=== PATIENT | male | born 1970 | race African-American/Black ===

== ENCOUNTER 2021-05-09 18:25 | Emergency (ER) | payer OTHER ==
[~2021-05-09] VITALS: Ht 182.9 cm; Wt 103.0 kg
[2021-05-09] MEDS ORDERED: IV NORMAL SALINE 1000ML BAG 1,000 ML IV SCH (20:15)
[2021-05-09 20:31] LABS: BASO # 0.1 x10^3/uL (0.0-0.2); BASO % 1 % (0-3); EOS # 0.2 x10^3/uL (0.0-0.7); EOS % 2 % (0-3); HEMATOCRIT 44.1 % (39.0-53.0); HEMOGLOBIN 14.2 g/dL (13.0-17.5); LYMPH # 3.6 x10^3/uL (1.0-4.8); LYMPH % 50 % (24-48); MEAN CORPUSCULAR HEMOGLOBIN 24 pg (25-35); MEAN CORPUSCULAR HGB CONC 32 g/dL (31-37); MEAN CORPUSCULAR VOLUME 75 fL (79-100); MONO # 0.5 x10^3/uL (0.0-1.1); MONO % 7 % (0-9); NEUT # 2.9 x10^3/uL (1.8-7.7); NEUT % 40 % (31-73); PLATELET COUNT 331 x10^3/uL (140-400); RED BLOOD COUNT 5.93 x10^6/uL (4.30-5.70); RED CELL DISTRIBUTION WIDTH 16.6 % (11.5-14.5); WHITE BLOOD COUNT 7.2 x10^3/uL (4.0-11.0)
--- NOTE | 2021-05-09 20:37 | RAD ---
Study: XR CHEST 1V Indication: Abnormal EKG. Comparison: None. Findings: Upper limits of normal size of the cardiomediastinal silhouette considering AP technique. Unremarkabl e/symmetric miguel. No confluent airspace infiltrate, pleural effusion or pneumothorax. Suspected mild basilar volume loss. Impression: Upper limits of normal size of the cardiomediastinal silhouette. No background manifestations of over t congestive heart failure/volume overload. Electronically signed by: VAUGHN MARIE MD (05/09/2021 8:35 PM) [facility] [facility]
[2021-05-09 21:02] LABS: BILIRUBIN,URINE NEGATIVE (NEG); CLARITY,URINE CLEAR; COLOR,URINE YELLOW; NITRITE,URINE NEGATIVE (NEG); PROTEIN,URINE NEGATIVE (NEG-TRACE)
[2021-05-09 21:12] LABS: CALCIUM 8.5 mg/dL (8.5-10.1); CREATININE 1.3 mg/dL (0.7-1.3); GFR 70.1; POTASSIUM 3.8 mmol/L (3.5-5.1)
[2021-05-09 21:12] LABS: BACTERIA,URINE 0 /HPF (0-FEW)
[2021-05-09 21:18] LABS: BARBITURATES NEG (NEG); BENZODIAZEPINES NEG (NEG); CANNABINOIDS NEG (NEG); COCAINE NEG (NEG); METHADONE NEG (NEG); OPIATES NEG (NEG); PHENCYCLIDINE NEG (NEG)
[2021-05-09 21:24] LABS: ALBUMIN 2.9 g/dL (3.4-5.0); ALBUMIN/GLOBULIN RATIO 0.5 (1.0-1.7); MAGNESIUM 2.5 mg/dL (1.8-2.4); TOTAL BILIRUBIN 0.3 mg/dL (0.2-1.0); TOTAL PROTEIN 8.2 g/dL (6.4-8.2)
[2021-05-09 21:29] LABS: AMPHETAMINE/METHAMPHETAMINE NEG (NEG)
--- NOTE | 2021-05-09 22:04 | PHYS DOC ---
Past Medical History Past Surgical History: No Surgical History Smoking Status: Never Smoker Alcohol Use: Occasionally General Adult EDM: Chief Complaint: Palpitations HPI: HPI: 50-year-old male past medical history of tobacco use and rectal dysfunction, presents to the ED sent in from [facility] urgent care with concerns for abnormal EKG. Urgent care form recommend patient go to [facility] emergency department. Patient states he recently just got insurance and went to to "get checked out." Reports he has been having intermittent episodes of chest pain for the past year. Describes chest pain as nonradiating, burning, located in the left upper chest with associated shortness of breath the lasted for approximately 5 minutes-alleviates at rest. Patient states chest pain usually occurs daily with any walking, exertion or lifting. Sexual activity while taking sildenafil also worsens chest pain. Currently denies any active chest pain. Reports no chest pain while at the urgent care clinic. States his father of a heart attack in his 40s. Mother of kidney failure when he was 11. Past surgical history of hernia repair. Not a primary care physician for years. Is vaccinated for COVID. No known history of COVID. No personal or family history of AAA, AAD, CTD (ehlos danlos or marfans), cardiac arrhythmias (need for AICD), or clotting disorders. Review of Systems: Review of Systems: Constitutional: Denies fever or chills. [] Eyes: Denies change in visual acuity. [] HENT: Denies nasal congestion or sore throat. [] Respiratory: Denies cough or hemoptysis Cardiovascular: Denies syncope or edema. [] GI: Denies abdominal pain, nausea, vomiting, bloody stools or diarrhea. [] : Denies dysuria or incontinence Musculoskeletal: Denies back pain or joint pain. [] Integument: Denies rash or diaphoresis Neurologic: Denies headache, focal weakness or sensory changes. [] Endocrine: Denies polyuria or polydipsia. [] Lymphatic: Denies swollen glands. [] Psychiatric: Denies depression or anxiety. [] Heart Score: C/O Chest Pain: No HEART Score for Chest Pain: HEART Score for Chest Pain Response (Comments) Value History Slighlty/Non-Suspicious 0 ECG Nonspecific Repolarizatio 1 Age >45 - < 65 1 Risk Factors 1 or 2 Risk Factors 1 Troponin < Normal Limit 0 Total 3 Risk Factors: Risk Factors: DM, Current or recent (<one month) smoker, HTN, HLP, family history of CAD, obesity. Risk Scores: Score 0 - 3: 2.5% MACE over next 6 weeks - Discharge Home Score 4 - 6: 20.3% MACE over next 6 weeks - Admit for Clinical Observation Score 7 - 10: 72.7% MACE over next 6 weeks - Early Invasive Strategies Current Medications: Current Medications Medications (Trade) Dose Ordered Sig/Lashon Start Time Stop Time Status Last Admin Dose Admin Sodium Chloride 1,000 ml @ 1,000 mls/hr Q1H 05/09/21 20:15 05/09/21 21:14 DC 05/09/21 20:53 1,000 MLS/HR Allergies: Allergies: Allergies Coded Allergies Type Severity Reaction Last Updated Verified No Known Drug Allergies 05/09/21 No Physical Exam: PE: Constitutional: Well developed, well nourished, no acute distress, non-toxic appearance. [] HENT: Normocephalic, atraumatic, bilateral external ears normal, oropharynx moist, no oral exudates, nose normal. [] Eyes: PERRLA, EOMI, conjunctiva normal, no discharge. [] Neck: Normal range of motion, no tenderness, supple, no stridor. [] Cardiovascular:Heart rate regular rhythm, no murmur [] Lungs & Thorax: Bilateral breath sounds clear to auscultation [] Abdomen: Bowel sounds normal, soft, no tenderness, no masses, no pulsatile masses. [] Skin: Warm, dry, no erythema, no rash. [] Back: No tenderness, no CVA tenderness. [] Extremities: No tenderness, no cyanosis, no clubbing, ROM intact, no edema. [] Neurologic: Alert and oriented X 3, normal motor function, normal sensory function, no focal deficits noted. [] Psychologic: Affect normal, judgement normal, mood normal. [] Current Patient Data: Labs: Laboratory Tests Test 05/09/21 20:20 05/09/21 20:55 White Blood Count 7.2 x10^3/uL (4.0-11.0) Red Blood Count 5.93 x10^6/uL (4.30-5.70) H Hemoglobin 14.2 g/dL (13.0-17.5) Hematocrit 44.1 % (39.0-53.0) Mean Corpuscular Volume 75 fL (79-100) L Mean Corpuscular Hemoglobin 24 pg (25-35) L Mean Corpuscular Hemoglobin Concent 32 g/dL (31-37) Red Cell Distribution Width 16.6 % (11.5-14.5) H Platelet Count 331 x10^3/uL (140-400) Neutrophils (%) (Auto) 40 % (31-73) Lymphocytes (%) (Auto) 50 % (24-48) H Monocytes (%) (Auto) 7 % (0-9) Eosinophils (%) (Auto) 2 % (0-3) Basophils (%) (Auto) 1 % (0-3) Neutrophils # (Auto) 2.9 x10^3/uL (1.8-7.7) Lymphocytes # (Auto) 3.6 x10^3/uL (1.0-4.8) Monocytes # (Auto) 0.5 x10^3/uL (0.0-1.1) Eosinophils # (Auto) 0.2 x10^3/uL (0.0-0.7) Basophils # (Auto) 0.1 x10^3/uL (0.0-0.2) D-Dimer (Dagmar) < 0.27 ug/mlFEU Sodium Level 138 mmol/L (136-145) Potassium Level 3.8 mmol/L (3.5-5.1) Chloride Level 101 mmol/L (98-107) Carbon Dioxide Level 31 mmol/L (21-32) Anion Gap 6 (6-14) Blood Urea Nitrogen 21 mg/dL (8-26) Creatinine 1.3 mg/dL (0.7-1.3) Estimated GFR (Cockcroft-Gault) 70.1 BUN/Creatinine Ratio 16 (6-20) Glucose Level 99 mg/dL (70-99) Calcium Level 8.5 mg/dL (8.5-10.1) Magnesium Level 2.5 mg/dL (1.8-2.4) H Total Bilirubin 0.3 mg/dL (0.2-1.0) Aspartate Amino Transferase (AST) 16 U/L (15-37) Alanine Aminotransferase (ALT) 25 U/L (16-63) Alkaline Phosphatase 58 U/L (46-116) Troponin I High Sensitivity 18 ng/L (4-75) BI-Nkv-T-Type Natriuretic Peptide 284 pg/mL (0-124) H Total Protein 8.2 g/dL (6.4-8.2) Albumin 2.9 g/dL (3.4-5.0) L Albumin/Globulin Ratio 0.5 (1.0-1.7) L Lipase 69 U/L (73-393) L Urine Color Yellow Urine Clarity Clear Urine pH 7.0 (<5.0-8.0) Urine Specific [place] 1.020 (1.000-1.030) Urine Protein Negative mg/dL (NEG-TRACE) Urine Glucose (UA) Negative mg/dL (NEG) Urine Ketones (Stick) Negative mg/dL (NEG) Urine Blood Negative (NEG) Urine Nitrite Negative (NEG) Urine Bilirubin Negative (NEG) Urine Urobilinogen Dipstick 1.0 mg/dL (0.2 mg/dL) Urine Leukocyte Esterase Negative (NEG) Urine RBC 3-5 /HPF (0-2) Urine WBC 1-4 /HPF (0-4) Urine Squamous Epithelial Cells Occ /LPF Urine Bacteria 0 /HPF (0-FEW) Urine Mucus Slight /LPF Urine Opiates Screen Neg (NEG) Urine Methadone Screen Neg (NEG) Urine Barbiturates Neg (NEG) Urine Phencyclidine Screen Neg (NEG) Urine Amphetamine/Methamphetamine Neg (NEG) Urine Benzodiazepines Screen Neg (NEG) Urine Cocaine Screen Neg (NEG) Urine Cannabinoids Screen Neg (NEG) Urine Ethyl Alcohol Neg (NEG) Laboratory Tests 05/09/21 20:20 Laboratory Tests 05/09/21 20:20 Vital Signs: Vital Signs Date Time Temp Pulse Resp B/P (MAP) Pulse Ox O2 Delivery O2 Flow Rate FiO2 05/09/21 21:25 85 18 156/88 (110) 98 Room Air 05/09/21 20:00 98.6 98.6 EKG: EKG: Sinus rhythm 91 bpm, left axis deviation, normal intervals, concern for ST segment depressions in 2, 3, aVF, V5 and V6, no reciprocal changes, Q-wave in lead I and aVL, no ST elevation, denies any active chest pain Radiology/Procedures: Radiology/Procedures: IMAGING REPORT Signed PATIENT: HERMINIO DYER AACCOUNT: [id number] : 1970 LOCATION: ER AGE: 50 SEX: M EXAM STATUS: REG ER ORD. PHYSICIAN: CHIP MCCLOUD DO REASON: abnormal ekg PROCEDURE: PORTABLE CHEST 1V Study: XR CHEST 1V Indication: Abnormal EKG. Comparison: None. Findings: Upper limits of normal size of the cardiomediastinal silhouette considering AP technique. Unremarkable/symmetric miguel. No confluent airspace infiltrate, pleural effusion or pneumothorax. Suspected mild basilar volume loss. Impression: Upper limits of normal size of the cardiomediastinal silhouette. No background manifestations of overt congestive heart failure/volume overload. Electronically signed by: VAUGHN MARIE MD (05/09/2021 8:35 PM) [facility] DICTATED and SIGNED BY: VAUGHN MARIE MD DATE: 05/09/[id number] 0 IMAGING REPORT Signed PATIENT: HERMINIO DYER AACCOUNT: [id number] : 1970 LOCATION: ER AGE: 50 SEX: M EXAM STATUS: REG ER ORD. PHYSICIAN: CHIP MCCLOUD DO REASON: upper limits of cardiomediastinal silhouette, cp, OMNI 350 100 ML IV PROCEDURE: CT ANGIO CHEST ABD PELVIS EXAM: CT ANGIOGRAM CHEST ABDOMEN AND PELVIS WITH AND WITHOUT IV CONTRAST CLINICAL HISTORY: upper limits of cardiomediastinal silhouette, chest pain COMPARISON: none TECHNIQUE:CT angiography of the chest, abdomen and pelvis was performed before and after the administration of IV contrast during the arterial phase. Multiplanar reformatted images including 3-D/MIP reconstructions were generated. FINDINGS: CT ANGIOGRAM: Aorta is grossly normal in caliber. Bovine configuration of the aortic arch. W idely patent vessels of the aortic arch. There is mild intermittent atheromatous plaque of the descending thoracic aorta. The origin of the celiac, SMA and NIMESH are grossly patent. Abdominal aorta is normal in caliber. The arteries are normal in caliber. Common, internal and external iliac artery are normal in caliber with intermittent atheromatous plaque of the distal abdominal aorta and common iliac arteries bilaterally. CHEST: Heart is not enlarged. No pericardial effusion. No pleural effusion. No pneumothorax. Linear opacities lower lobes likely scarring/atelectasis. No mediastinal or hilar lymphadenopathy. No axillary lymphadenopathy. ABDOMEN AND PELVIS: Hepatic hypoattenuation, fatty liver. Gallbladder is normal. No biliary ductal dilatation. Pancreas, spleen and adrenal glands are unremarkable. Symmetric nephrograms. Bilateral renal cysts are seen. No hydronephrosis. No hydroureter. Nodularity at the bladder likely related to enlarged prostate with prostatic nodularity. Moderate colonic stool content is seen. No small or large bowel dilatation. No bowel obstruction. No abdominal or pelvic ascites. No abdominal or pelvic lymphadenopathy. BONES: No aggressive osseous lesion is seen. IMPRESSION: 1. Aorta is normal in caliber without evidence for aneurysm or dissection. Intermittent atheromatous plaque in the descending thoracic, abdominal aorta and common iliacs. No evidence for high-grade stenosis or occlusion of the aorta are main branches. 2. Hepatic hypoattenuation, likely fatty liver. 3. Simple appearing renal cysts bilaterally. 4. Moderate colonic stool content is seen. No bowel obstruction. Electronically signed by: Ron Ordonez MD (05/10/2021 2:35 AM) [facility] Course & Med Decision Making: Course & Med Decision Making Pertinent Labs and Imaging studies reviewed. (See chart for details) Concern for intermittent, atypical chest pain in a well-appearing male with no active symptoms. Patient with heart score of 3. EKG does have some ischemic findings. 2 high-sensitivity troponins are negative. D-dimer is within normal limits. Urinalysis with no hematuria. Drug screen with no cocaine or m ethamphetamines. Patient has been asymptomatic during entire ED stay-has no active chest pain. CXR with cardiomediastinal silhouette is in the upper limits of normal. CTA chest shows no dissection or aneurysm. Will discharge home with strict ED return precautions were given for syncope, chest pain, hemoptysis or neurologic deficits. Encouraged urgent outpatient follow-up with PMD for reevaluation and cardiology for definitive management. Life-threatening processes were considered but are low suspicion at this time, given history, physical exam and ED workup. Pt was educated on all prescription medications and adverse effects. All patient's questions were answered and pt was stable at time of discharge. Life/limb-threatening differential includes but is not limited to, acute myocardial infarction, aortic dissection, congestive heart failure, esophageal injury including rupture, surgical abdomen, arrhythmia, cardiomyopathy, myocarditis, pericarditis, peptic ulcer disease, pneumomediastinum, pneumonia, pneumothorax, pulmonary embolus, unstable angina, rib fracture, contusion, peric ardial tamponade or effusion, traumatic injury including mediastinal hemorrhage or hematoma, or pulmonary contusion. I have spoken with the patient and/or caregivers. I explained the patient's condition, diagnoses and treatment plan based on the information available to me at this time. I have answered the patient and/or caregiver's questions and addressed any concerns. The patient and/or caregivers have a good understanding of patient's diagnosis, condition and treatment plan as can be expected at this point. Vital signs have been stable. Patient's condition is stable and appropriate for discharge from the emergency department. Patient will pursue further outpatient evaluation with primary care physician or other designated or consulting physician as outlined in the discharge inst ructions. The patient and/or caregivers are agreeable to this plan of care and follow-up instructions have been explained in detail. The patient and/or caregivers have received these instructions in written form and have expressed an understanding of the discharge instructions. The patient and/or caregivers are aware that any significant change of condition or worsening of symptoms should prompt immediate return to this or the closest emergency department or call to 911. Oh My Glasses Disclaimer: Oh My Glasses Disclaimer: This electronic medical record was generated, in whole or in part, using a voice recognition dictation system. Departure Departure Impression: Primary Impression: Exertional chest pain Disposition: HOME / SELF CARE / HOMELESS Condition: STABLE Referrals: HERMINIO CARSON MD (PCP) Follow-up with your primary care physician in 24 to 48 hours OR FOLLOW UP WITH FAMILY MEDICINE: [address] [facility] [address] [place] [address] Patient Instructions: Chest Pain (Nonspecific) Additional Instructions: FOLLOW UP WITH CARDIOLOGY: FOR DEFINITIVE MANAGEMENT of chest pain. Return to ED if you should develop any chest pressure, tightness, squeezing with associated shortness of breath, nausea or vomiting or sweating-pain can radiate to the jaw and the arm. Avoid any strenuous exercise until seen by cardiology [facility] [address] [facility] [address] [place] [address] RETURN TO THE ED IMMEDIATELY. EMERGENCY DEPARTMENT GENERAL DISCHARGE INSTRUCTIONS Thank you for coming to [facility] Emergency Department (ED) today and trusting us with you care. We trust that you had a positive experience in our Emergency Department. If you wish to speak to the department management, you may call the Director at [phone]. YOUR FOLLOW UP INSTRUCTIONS ARE FOLLOWS: 1. Do you have a private Doctor? If you do not have a private doctor, please ask for a resource list of physicians or clinics that may be able to assist you with follow up care. 2. The Emergency Physicain has interpreted your x-rays. The X-Ray specialist will also review them. If there is a change in the findings, you will be notified in 48 hours when at all possible. 3. A lab test or culture has been done, your results will be reviewed and you will be notified if you need a change in treatment. ADDITIONAL INSTRUCTIONS AND INFORMATION: 1. Your care today has been supervised by a physician who is specially trained in emergency care. Many problems require more than one evaluation for a complete diagnosis and treatment. We recommend that you schedule your follow up appointment as recommended to ensure complete treatment of you illness or injury. If you are unable to obtain follow up care and continue to have a problem, or if your condition worsens, we recommend that you return to the ED. 2. We are not able to safely determine your condition over the phone nor are we able to give sound medical advice over the phone. For these safety reasons, if you call for medical advice we will ask you to come to the ED for further evaluation. 3. If you have any questions regarding these discharge instructions please call the ED at [phone]. SAFETY INFORMATION: In the interest of safety, wellness, and injury prevention; we encourage you to wear your sealbelt, if you smoke; quite smoking, and we encourage family to use a protective helmet for bicycling and other sporting events that present an increased risk for head injury. IF YOUR SYMPTOMS WORSEN OR NEW SYMPTOMS DEVELOP, OR YOU HAVE CONCERNS ABOUT YOUR CONDITION; OR IF YOUR CONDITION WORSENS WHILE YOU ARE WAITING FOR YOUR FOLLOW UP APPOINTMENT; EITHER CONTACT YOUR PRIMARY CARE DOCTOR, THE PHYSICIAN WHOSE NAME AND NUMBER YOU WERE GIVEN, OR CHIP MCCLOUD DO May 09, 2021 22:04
[2021-05-10] MEDS ORDERED: IOHEXOL 350 MG/ML 100 ML VIAL. IV ONE (02:00)
[2021-05-10] MEDS ORDERED: CONTRAST GIVEN. MC PRN (02:00)
[2021-05-10 02:19] VITALS: BP 180/104
--- NOTE | 2021-05-10 02:37 | RAD ---
EXAM: CT ANGIOGRAM CHEST ABDOMEN AND PELVIS WITH AND WITHOUT IV CONTRAST CLINICAL HISTORY: upper limits of cardiomediastinal silhouette, chest pain COMPARISON: none TECHNIQUE:CT angiography of the chest, abdomen and pelvis was performed before and after the administ ration of IV contrast during the arterial phase. Multiplanar reformatted images including 3-D/MIP rec onstructions were generated. FINDINGS: CT ANGIOGRAM: Aorta is grossly normal in caliber. Bovine configuration of the aortic arch. Widely patent vessels of the aortic arch. There is mild intermittent atheromatous plaque of the descending thoracic aorta. Th e origin of the celiac, SMA and NIMESH are grossly patent. Abdominal aorta is normal in caliber. The art eries are normal in caliber. Common, internal and external iliac artery are normal in caliber with in termittent atheromatous plaque of the distal abdominal aorta and common iliac arteries bilaterally. CHEST: Heart is not enlarged. No pericardial effusion. No pleural effusion. No pneumothorax. Linear opacities lower lobes likely scarring/atelectasis. No mediastinal or hilar lymphadenopathy. No axillary lymphadenopathy. ABDOMEN AND PELVIS: Hepatic hypoattenuation, fatty liver. Gallbladder is normal. No biliary ductal dilatation. Pancreas, spleen and adrenal glands are unremarkable. Symmetric nephrograms. Bilateral renal cysts are seen. No hydronephrosis. No hydroureter. Nodularity at the bladder likely related to enlarged prostate with prostatic nodularity. Moderate colonic stool content is seen. No small or large bowel dilatation. No bowel obstruction. No abdominal or pelvic ascites. No abdominal or pelvic lymphadenopathy. BONES: No aggressive osseous lesion is seen. IMPRESSION: 1. Aorta is normal in caliber without evidence for aneurysm or dissection. Intermittent atheromatous plaque in the descending thoracic, abdominal aorta and common iliacs. No evidence for high-grade noemi nosis or occlusion of the aorta are main branches. 2. Hepatic hypoattenuation, likely fatty liver. 3. Simple appearing renal cysts bilaterally. 4. Moderate colonic stool content is seen. No bowel obstruction. Electronically signed by: Ron Ordonez MD (05/10/2021 2:35 AM) [facility]ER[facility]
--- NOTE | 2021-05-10 03:56 | EKG ---
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
--- NOTE | 2021-05-12 17:30 | EKG ---
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
== END 2021-05-10 03:35 | disposition home or self-care (01) ==
LOC: ER 18:25
DX: R07.89 Other chest pain (principal); R06.02 Shortness of breath
CPT/HCPCS: 36415; 71045; 71275; 74174; 80053; 80307; 81001; 83690; 83735; 83880; 84484; 85025; 85379; 93005; 96360; 96361; 99285; J7030; Q9967

== ENCOUNTER 2021-05-26 06:49 | Outpatient (CLI) | payer OTHER ==
[~2021-05-26] VITALS: Ht 182.9 cm; Wt 105.0 kg
[2021-05-26] VITALS (10 sets, daily range): BP systolic 105–151; BP diastolic 58–84
[2021-05-26] MEDS ORDERED: MIDAZOLAM HCL/PF 5 MG/5 ML VIAL. ONE (08:19)
[2021-05-26] MEDS ORDERED: fentaNYL PF VIAL 100 MCG/2 ML VIAL ONE (08:19)
[2021-05-26] MEDS ORDERED: HEPARIN for IV BOLUS 10,000 UNIT/10 ML VIAL. ONE (08:19)
[2021-05-26] MEDS ORDERED: VERAPAMIL 5 MG/2 ML VIAL. ONE (08:19)
[2021-05-26] MEDS ORDERED: NITROGLYCERIN 200 MCG/2 ML SYRINGE FOR CATH/VASC LAB. ONE (08:20)
[2021-05-26] MEDS ORDERED: ISOSORBIDE MONONITRATE ER 30 MG TAB.ER.24H PO SCH (09:00)
[2021-05-26] MEDS ORDERED: VERAPAMIL 5 MG/2 ML VIAL. IART ONE (09:00)
[2021-05-26] MEDS ORDERED: IODIXANOL 320 MG/ML 100 ML VIAL. IART ONE (09:00)
[2021-05-26] MEDS ORDERED: MIDAZOLAM HCL/PF 5 MG/5 ML VIAL. IVP ONE (09:00)
[2021-05-26] MEDS ORDERED: LIDOCAINE 1% PF 30 ML VIAL. INJ ONE (09:00)
[2021-05-26] MEDS ORDERED: NITROGLYCERIN 200 MCG/2 ML SYRINGE FOR CATH/VASC LAB. IART ONE (09:00)
[2021-05-26] MEDS ORDERED: fentaNYL PF VIAL 100 MCG/2 ML VIAL IV ONE (09:00)
[2021-05-26] MEDS ORDERED: LIDOCAINE 1% PF 2 ML VIAL. INJ ONE ×2 (09:00→09:30)
[2021-05-26] MEDS ORDERED: METOPROLOL TART IMMED RELEASE 25 MG TABLET. PO SCH (09:00)
[2021-05-26] MEDS ORDERED: HEPARIN for IV BOLUS 10,000 UNIT/10 ML VIAL. IART ONE (09:00)
[2021-05-26] MEDS ORDERED: CONTRAST GIVEN. MC PRN (09:15)
--- NOTE | 2021-05-26 09:15 | PDOC ---
MODERATE SEDATION ASSESSMENT RISKS/ALTERNATIVES Risks/Alternatives Risks and alternatives of this type of sedation and procedure discussed with: RISK/ALTERNATIVES: Patient H & P ON CHART H & P H & P on chart and reviewed for co-morbid conditions and appropriate labs. H&P ON CHART: Yes STATUS PREG STATUS ASSESSED: N/A MEDS/ALLERGIES REVIEWED Meds/Allergies Reviewed Medications and Allergies including time and route of recently administered narcotics and sedatives. MEDS/ALLERGIES REVIEWED: Yes ASA RATING ASA RATING: II AIRWAY ASSESSMENT Airway Assessment Airway patency, oral function limitations, presence of caps, crowns, dentures, partials, and ability to extend neck assessed. AIRWAY ASSESSMENT: Yes MALLAMPATI SCORE MALLAMPATI SCORE: II PRE-SEDATION ASSESSMENT PRE-SEDATION ASSESSMENT: Yes PARIS CANDELARIA MD May 26, 2021 09:15
--- NOTE | 2021-05-26 09:36 | CARD ---
MR#: [id number] Date of Study: 05/26/2021 Ordering Physician: PARIS WOODSON, Referring Physician: PARIS WOODSON, Tech: RT Damien(R) APPROVED REPORT Technologist: Esteafnia Hawkins RT(R) Nurse: Flavia Patrick RN Procedure(s) performed: Left heart catheterization, selective coronary angiography and left ventricul ography via right transradial approach MODERATE SEDATION TIME: 37 MINUTES FLUORO TIME: 3.8 MIN DOSE: 57.3 GYCM2 CONTRAST: 100CC VISI INDICATION The indication(s) include : unstable angina . [facility] Clinical Frailty Scale [facility] Clinical Frailty Scale: Managing Well Heart Failure Heart Failure: No CASE TECHNIQUE IV conscious sedation was used throughout procedure with appropriate monitoring and was performed in the presence of a registered nurse who was an independent trained observer other than the physician p erforming the procedure. During this case, Fluoroscopy and low osmolar contrast were used for imaging . Specimen(s) Removed: No Estimated Blood loss: 15 cc's. PROCEDURE NARRATIVE After explaining the risks, benefits and alternative options, informed consent was obtained from samantha ent. Patient was brought to the cardiac Clinical Professor and right wrist was prepped and draped in the usual fashion after confirming a positive modified Chicho's test. Arterial access was obtained in the righ t radial artery and a 6 Afghan sheath was inserted. 6 Afghan Ernst catheter was used to perform daljit ective angiography of the left and right coronary arteries. 6 Afghan pigtail catheter was used to pe rform left ventriculography. Patient tolerated the procedure well. Hemostasis was achieved using TR band. There were no immediate complications. The following findings were noted. FINDINGS 1. Hemodynamics: Left ventricular end-diastolic pressure of 8 mmHg. No pullback gradient across the aortic valve. 2. Left ventriculography: Moderate left ventricular systolic dysfunction with ejection fraction ibrahima mated at 30%. No significant mitral regurgitation seen. 3. Coronary angiography: a. The left main coronary artery arose from the left sinus of Valsalva, gave rise to the left anteri or descending and left circumflex arteries and did not show any significant stenosis. b. The left anterior descending artery showed 90% stenosis in the proximal to mid segment and anothe r 80% stenosis in the midsegment. c. The left circumflex artery showed 60% stenosis in the proximal segment. The obtuse marginal bran ch showed 100% chronic total occlusion in the proximal segment with distal reconstitution from collat erals. d. The right coronary artery arose from the right sinus of Valsalva and showed a long 100% chronic t otal occlusion involving the proximal to mid segment with distal reconstitution from bridging collate rals and riam-zi-tfhuo collaterals. Conclusion 1. Severe three-vessel coronary artery disease 2. Moderate left ventricular systolic dysfunction with ejection fraction estimated at 30% Recommendations Cardiothoracic surgery team consultation for coronary artery bypass surgery Signed by : Paris Woodson, Electronically Approved : 05/26/2021 09:35:38
[2021-05-26 09:59] LABS: CREATININE 1.1 mg/dL (0.7-1.3); GFR 85.1; POTASSIUM 4.1 mmol/L (3.5-5.1)
[2021-05-26] MEDS ORDERED: ASPIRIN ENTERIC COATED 81 MG TABLET.DR. PO SCH (10:00)
[2021-05-26] MEDS ORDERED: ATOR40TA59 PO (10:18)
[2021-05-26] MEDS ORDERED: ASPI-886 PO (10:18)
[2021-05-26] MEDS ORDERED: METO25TA4 PO (10:19)
[2021-05-26] MEDS ORDERED: ISOS30TA68 PO (10:19)
[2021-05-26 10:50] LABS: CHOLESTEROL/HDL RATIO 11.8
--- NOTE | 2021-05-26 11:47 | NUR ---
TR band Dc'd. Armboard reapplied. Medications called to pharmacy of patients choice. Discharge instructions reviewed with patient and spouse. PIV intact for echocardiogram. Pt ambulated and tolerated PO. Pt transferred to cardiac center for echo
[2021-05-26] MEDS ORDERED: ATORVASTATIN CALCIUM 40 MG TABLET. PO SCH (21:00)
--- NOTE | 2021-05-27 08:50 | CARD ---
MR#: [id number] Date of Study: 05/26/2021 Ordering Physician: PARIS CANDELARIA, Referring Physician: PARIS CANDELARIA, Tech: Allyn Gilliam [facility] APPROVED REPORT EXAM: Two-dimensional and M-mode echocardiogram with Doppler and color Doppler. Other Information Quality : AverageHR: 79bpm Rhythm : NSR INDICATION Cardiac Disease: CAD RISK FACTORS Hypertension Hyperlipidemia 2D DIMENSIONS RVDd3.7 (2.9-3.5cm)Left Atrium(2D)4.3 (1.6-4.0cm) IVSd1.1 (0.7-1.1cm)Aortic Root(2D)3.7 (2.0-3.7cm) LVDd5.1 (3.9-5.9cm)LVOT Diameter2.1 (1.8-2.4cm) PWd1.2 (0.7-1.1cm)LVDs3.0 (2.5-4.0cm) FS (%) 40.6 %SV89.1 ml LVEF(%)71.0 (>50%) Aortic Valve AoV Peak Willem.96.9cm/sAoV VTI18.1cm AO Peak GR.3.8mmHgLVOT Peak Willem.93.5cm/s AO Mean GR.2mmHgAVA (VMAX)3.28cm2 Mitral Valve MV E Vsoegxpf50.1cm/sMV DECEL OLAK442nz MV A Itpueems60.9cm/sE/A Ratio0.7 Pulmonary Valve PV Peak Uzaquvbm479.8cm/s Tricuspid Valve TR P. Dcgremvl764nr/sTR Peak Gr.22mmHg LEFT VENTRICLE The left ventricle is normal size. There is borderline to mild concentric left ventricular hypertroph y. The left ventricular systolic function is normal and the ejection fraction is within normal range. Estimated ejection fraction 55%. Septal motion suggestive of conduction defect. The basal to mid inf erior and inferolateral wall is mildly hypokinetic. Tissue Doppler imaging reveals moderate left sandra tricular diastolic dysfunction. RIGHT VENTRICLE The right ventricle is normal size. There is normal right ventricular wall thickness. The right ventr icular systolic function is normal. ATRIA The left atrium size is normal. The right atrium size is normal. The interatrial septum is intact wit h no evidence for an atrial septal defect or patent foramen ovale as noted on 2-D or Doppler imaging. AORTIC VALVE The aortic valve is normal in structure and function. Doppler and Color Flow revealed no significant aortic regurgitation. There is no significant aortic valvular stenosis. MITRAL VALVE The mitral valve is normal in structure and function. There is no evidence of mitral valve prolapse. There is no mitral valve stenosis. Doppler and Color-flow revealed trace mitral regurgitation. TRICUSPID VALVE The tricuspid valve is normal in structure and function. Doppler and Color Flow revealed no tricuspid valve regurgitation noted. There is no tricuspid valve stenosis. PULMONIC VALVE Doppler and Color Flow revealed mild pulmonic valvular regurgitation. There is no pulmonic valvular s tenosis. GREAT VESSELS The aortic root is mildly enlarged. The IVC is normal in size and collapses >50% with inspiration. PERICARDIAL EFFUSION There is no evidence of significant pericardial effusion. Critical Notification Critical Value: No <Conclusion> The left ventricular systolic function is normal and the ejection fraction is within normal range. E stimated ejection fraction 55%. Septal motion suggestive of conduction defect. The basal to mid inferior and inferolateral wall is mi ldly hypokinetic. Doppler and Color Flow revealed mild pulmonic valvular regurgitation. Signed by : Leo Padilla, Electronically Approved : 05/27/2021 08:50:04
== END 2021-05-26 12:15 | disposition home or self-care (01) ==
LOC: CCL 06:49
PROVIDERS: ATTEND Internal Medicine Cardiovascular Disease
DX: I25.110 Atherosclerotic heart disease of native coronary artery with unstable angina pectoris (principal); R07.9 Chest pain, unspecified; R00.2 Palpitations; R03.0 Elevated blood-pressure reading, without diagnosis of hypertension; Z68.31 Body mass index [BMI] 31.0-31.9, adult; Z79.82 Long term (current) use of aspirin; Z79.899 Other long term (current) drug therapy; Z98.890 Other specified postprocedural states; Z72.89 Other problems related to lifestyle
CPT/HCPCS: 36415; 80048; 80061; 93306; 93458; 99152; 99153; C1769; C1894; J1644; J3010; J3490; Q9967; C8929